=== PATIENT | female | born 1960 | race Caucasian/White ===

== ENCOUNTER 2018-03-28 14:55 | Emergency (ER) | payer BC ==
[~2018-03-28] VITALS: Ht 172.7 cm; Wt 74.0 kg
[2018-03-28] MEDS ORDERED: ketorolac trometh. 30mg/ml inj. IV ONE (15:25)
[2018-03-28] MEDS ORDERED: proCHLORperazine 10 MG/2 ml inj IV ONE (15:25)
[2018-03-28] MEDS ORDERED: normal saline 1000ML IV soln IVB ONE (15:25)
[2018-03-28] MEDS ORDERED: diphenhydrAMINE 50 mg/ml inj IV ONE (15:25)
[2018-03-28 17:11] VITALS: BP 121/74
== END 2018-03-28 17:12 | disposition home or self-care (01) ==
LOC: ER 14:57
DX: G43.909 Migraine, unspecified, not intractable, without status migrainosus (principal)
CPT/HCPCS: 96361; 96374; 96375; 99284; J0780; J1200; J1885